=== PATIENT | male | born 1985 | race Caucasian/White ===

== ENCOUNTER 2024-07-29 21:06 | Emergency (ER) | payer MEDICARE, SELFPAY ==
[2024-07-29 21:20] VITALS: BP 141/85; PULSE 95; RESP 17; TEMP 37.2; O2SAT 97; BMI 37.4
--- NOTE | 2024-07-29 21:55 | ED_ITS ---
HPI - Animal Bite General: Chief Complaint: Animal Bite Stated Complaint: Dog Bite Time Seen by Provider: 07/29/24 21:36 History of Present Illness: 39-year-old male bitten by dog to the [facility] arm prior to arrival. The dog belongs to a lady that is staying with him. By report, the dog's vaccinations are up-to-date. The dog is quarantined currently by the police department. His tetanus is not up-to-date. He has multiple antibiotic allergies. He cleaned the wound with peroxide prior to arrival. Related Data Previous Rx's ?Medication ?Instructions ?Recorded doxycycline hyclate 100 mg tablet 100 mg PO BID 5 days #10 tabs 07/29/24 metronidazole 500 mg tablet 500 mg PO BID #10 tabs Allergies Allergy/AdvReac Type Severity Reaction Status Date / Time amoxicillin Allergy ALGY-Rash Verified 07/29/24 21:23 azithromycin Allergy ALGY-Rash Verified 07/29/24 21:23 Penicillins Allergy ALGY-Rash Verified 07/29/24 21:23 Sulfa (Sulfonamide Allergy ALGY-Rash Verified 07/29/24 21:23 Antibiotics) Physical Exam Const: COMMON NORMALS: no acute distress GENERAL APPEARANCE: cooperative; not ill appearing and not frail appearing HENMT: COMMON NORMALS: normocephalic, atraumatic and Normal external nose present HEAD & SCALP: normocephalic and atraumatic FACE & SINUS: normal facial exam and face symmetric NOSE: Normal external nose present Eye: COMMON NORMALS: Equal, round and reactive pupils present and EOMs intact bilaterally PUPIL: Yes Equal, round and reactive pupils present Neck/C-Spine: GENERAL: Yes trachea midline Chest: CHEST: Yes Symmetrical chest wall rise Resp: COMMON NORMALS: normal respiratory effort, No retractions, No use of accessory muscles and clear to auscultation bilaterally AUSCULTATION: clear to auscultation bilaterally Cardio: COMMON NORMALS: regular rate and regular rhythm RATE: regular rate RHYTHM: regular rhythm Extremity: NARRATIVE EXTREMITY EXAM: Right upper extremity exam reveals a single puncture wound to the right anterior arm. No bleeding or drainage. No surrounding erythema. Neuro: SHAWNA COMA SCALE: document GCS findings Carnegie coma scale eye opening: Spontaneous Shawna coma scale verbal response: Orientated Carnegie coma scale motor response: Obey commands Carnegie coma scale total score: 15 SENSORY EXAM: Yes extremities (intact) Psych: COMMON NORMALS: speech normal SPEECH: Yes normal speech Course Vital Signs: Vital signs: Vital Signs Temperature 99.0 F 07/29/24 21:20 Pulse Rate 96 07/29/24 22:10 Respiratory Rate 17 07/29/24 21:20 Blood Pressure 140/91 07/29/24 22:10 Pulse Oximetry 98 07/29/24 22:10 Oxygen Delivery Me thod Room Air 07/29/24 21:20 MDM - Animal Bite Medical Decision Making Antibiotic coverage. Tetanus. Dog is quarantined. Return for problems. All radiology interpretation(s) finalized by discharge Discharge Plan Discharge Patient Disposition: Home Clinical Impression: Dog bite Condition: Stable Prescriptions: New doxycycline hyclate 100 mg tablet 100 mg PO BID 5 Days Qty: 10 0RF metronidazole 500 mg tablet 500 mg PO BID Qty: 10 0RF Discharge Orders: Discharge ED (Routine); Ordered 07/29/24 Ordered By: Madi Del Rio Patient Instructions: Animal Bite (ED), Opioid Safety, Pain Management Activity Restrictions/Additional Instructions: Antibiotics as directed. Wash wound with soap and running water. Do not submerge. Return for problems. Make sure you stay informed of dogs clinical status, and return if any changes in the dog's condition for reevaluation. Print Language: Upper Sorbian Coding Level of Care Code ED Audit Spec for Ramiro Islas
[2024-07-29] MEDS: doxycycline 100 mg Tablet PO (22:03)
[2024-07-29] MEDS: metroNIDAZOLE 500 MG Tablet PO (22:03)
[2024-07-29] MEDS: tetanus-dipt-pertussis 0.5 mL SDV IM (22:04)
[2024-07-29 22:10] VITALS: BP 140/91; PULSE 96; O2SAT 98
== END 2024-07-29 22:12 | disposition home or self-care (01) ==
PROVIDERS: Emergency Provider Emergency Medicine
DX: S41.151A Open bite of right upper arm, initial encounter (principal); W54.0XXA Bitten by dog, initial encounter
CPT/HCPCS: 90471; 90715; 99283; J9999

== ENCOUNTER 2024-09-22 06:13 | Emergency (ER) | payer MEDICARE, SELFPAY ==
--- OUTSIDE RECORDS SUMMARY | 2023-12-03 04:00 | XMS_ITS ---
Author Organization [facility] Address [address] [place] [address] Support Name Relationship Address , Yolanda Helms Emergency Contact Unknown Unavailable Cal Helms Guarantor Unknown [phone] Care Team Providers Care Geospatial Analyst Name Role Phone Luz Giles APRN Primary Care Provider Unavail able Ti Shell Unavailable [phone] Migration, Provider Unavailable Unavailable REASON FOR VISIT EMR-Joby Encounters Encounter Location Date Provider Diagnosis Migrated_Facility 0 0 12/03/2023 Provider Migration Plan Of Treatment Medication Medication Name Sig Start Date Stop Date Notes Meloxicam 15 MG Tablet 1 Tablet Twice a Day PRN Oral 06/2107/22/2019 Next Appt Details Provider Name:Ti Shell, 03/25/2025 10:20:00 AM, [address], [place], [address], Progress Notes * Cal HELMS DDOB: [birth year] (39 yo M)Acc No.[id number]:12/03/2023 Patient: Cal PAIGE :1985 A ge:38 Y S ex:Male Address:[address], [place] [address] * Refills Stop Meloxicam Tablet, 15 MG, Oral, 1 Tablet Twice a Day PRN Subjective: * Chief Complaints: * E MR-Joby * * Date:
--- OUTSIDE RECORDS SUMMARY | 2023-12-04 04:00 | XMS_ITS ---
Author Organization [facility] Address [address] [place] [address] Support Name Relationship Address , Yolanda Cee Emergency Contact Unknown Unavailable Cal Helms Guarantor Unknown [phone] Care Team Providers Care Mixing Machine Tender Name Role Phone Luz Giles APRN Primary Care Provider Unavail Ti Goyal Unavailable [phone] Migration, Provider Unavailable Unavailable Allergies Allergen (clinical drug ingredient) Drug/Non Drug Allergy documented on EMR Reaction Allergy Type Onset Date Status Substance with sulfonamide structure and antibacterial mechanism of action (substance) SULFA (SULFONAMIDE ANTIBIOTICS) (uncoded) Rash Allergy Active amoxicillin Amoxicillin Rash Drug Allergy Act dayan erythromycin Erythromycin anaphylaxis Drug Allergy Active erythromycin Erythromycin Base , Drug Allergy Active gabapentin Neurontin Unknown Drug Allergy Active Sulfatrim Unknown Drug Allergy Active Gabapentin Enacarbil Unknown Drug Allergy Active Amoxicillin ER , Drug Allergy Ac tive corticosteroid and/or corticosteroid derivative (FN) Corticosteroids Unknown Drug Allergy Active Substance with penicillin structure and antibacterial mechanism of action (substance) Penicillins Unknown Drug Allergy Active REASON FOR VISIT EMR-Joby Social History Social History Additional Details Category Social Info Options Details Migrated Social History Migrated Social History Alcoholic beverages? - No, Applying for disability? - Yes, Currently on disability? - No, Drug or substance abuse? - No, exposure to toxins/poisonous substances at work - No, Involved in any legal proceedings or lawsuits? - No, Marital Status - , Nonprescription drug use? - No, Participation in detoxification or rehabilitation - No, Smoking - No, Smoking status (MU) - Never smoker, Working currently? - No : last worked August 2018 Encounters Encounter Location Date Provider Diagnosis Migrated_Facility 0 0 12/04/2023 Provider Migration Plan Of Treatment Next Appt Details Provider Name:Ti Shell, 03/25/2025 10:20:00 AM, [address] [place] [address], [phone], Progress Notes * Angelo HELMSedgar DDOB: [birth year] (39 yo M)Acc No.[id number]:12/04/2023 Patient: Cal PAIGE :1985 A ge:38 Y S ex:Male Address:[address] [place] [address], [place] [address] Subjective: * Chief Complaints: * E MR-Joby * Medical History: Arthritis, M igraines, S welling of multiple joints, * Surgical History: Eye surgery Leg surgery * Family History: M igrated Family History: : Cancer, f ibromyalgia. * Social History: M igrated Social History: M igrated Social History: Alcoholic beverages? - No, A pplying for disability? - Yes, C urrently on disability? - No, D rug or substance abuse? - No, e xposure to toxins/poisonous substances at work - No, I nvolved in any legal proceedings or lawsuits? - No, M arital Status - , N onprescription drug use? - No, P articipation in detoxification or rehabilitation - No, S moking - No, S moking status (MU) - Never smoker, W orking currently? - No : last worked August 2018. * Allergies: A moxicillin: Rash - AllergySULFA (SULFONAMIDE ANTIBIOTICS): Rash - AllergyErythromycin Base: , - AllergyAmoxicillin ER: , - AllergyPenicillins: AllergyCorticosteroids: AllergyGabapentin Enacarbil: AllergyNeurontin: AllergySulfatrim: AllergyErythromycin: anaphylaxis - Allergy - Criticality High * * Date:
[2024-09-22 06:21] VITALS: BP 156/97; PULSE 75; RESP 20; TEMP 36.6; O2SAT 98; BMI 38.3
--- OUTSIDE RECORDS SUMMARY | 2024-09-22 06:21 | XMS_ITS | Clinical Summary ---
Author Organization [facility] Address [address] [place] [address] Care Team Providers Care Community Facilitator Name Role Phone Luz Giles APRN, SOLANGE Primary Care Provi sea Allergies Active Allergy Reactions Criticality Noted Date Comments Amoxicillin 06/24/2020 Azithromycin 06/24/2020 Penicillins 06/24/2020 Sulfa (Sulfonamide Antibiotics) 06/07 Medications No known medications Active Problems No known active problems Social History Tobacco Use Types Packs/Day Years Used Date Smoking Tobacco: Never Smokeless Tobacco: Never PHQ-2 Answer Date Recorded PHQ-2 Score 3 11/06/2020 Health Literacy Answer Date Recorded Health Literacy 1 11/12/2020 Sex and Gender Information Value Date Recorded Sex Assigned at Not on file Legal Sex Male 2: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 Gender Identity Not on file Sexual Orientation Not on file Last Filed Vital Signs Vital Sign Reading Time Taken Comments Blood Pressure 143/85 11/06/2020 1:03 PM CDT Pulse 71 11/06/2020 1:03 PM CDT Temperature 36.7 C (98.1 F) 11/06/2020 1:03 PM CDT Respiratory Rate - - Oxygen Saturation 100% 11/06/2020 1:03 PM CDT Inhaled Oxygen Concentration - - Weight 153.8 kg (339 lb 1.6 oz) 11/06/2020 1:03 PM CDT Height 177.8 cm (5' 10 ) 11/06/2020 1:03 PM CDT Body Mass Index 48.66 11/06/2020 1:03 PM CDT Plan of Treatment Health Maintenance Due Date Last Done Comments Anxiety Screening 1994 Depression Screening 2004 Hepatitis B Vaccine (1 of 3 - 19+ 3-dose series) 2005 Pneumococcal Vaccine 0-50 ye ars (1 of 2 - PCV) 2005 TDAP/DTaP/TD Vaccines (1 - Tdap) 2005 COVID-19 Vaccine (1 - 2023-2 5 season) 2023 Influenza Series (#1) 2024 HIV Screening Completed 11/06/2020 Hepatitis C Screening Completed 11/06/2020 Meningococcal B Vaccine Aged Out No l onger eligible based on patient's age to complete this topic Procedures Procedure Name Priority Date/Time Associated Diagnosis Comments CHRONIC HEPATITIS SCREEN Routine 11/06/2020 3:17 PM CDT Central pain syndrome HIV-1/2 ANTIBODIES AND HIV-1 P24 ANTIGEN SCREENING Routine 11/06/2020 3:17 PM CDT Central pain syndrome from Last 3 Months or Most Recently Relevant to Health Maintenance Results * HIV1/2 Antibodies and HIV-1 P24 Antigen Screening (11/06/2020 3:17 PM CDT) HIV I&II antibodies and HIV I P24 antigen Screening Non-Reacti ve Non-React dayan 11/06/2020 4:18 PM CDT [facility] Serum 11/06/2020 3:17 PM CDT 11/06/2020 3:28 PM CDT Narrative [facility] - 11/06/2020 4:18 PM CDT This assay does not distinguish HIV-1 p24 antigen, antibodies to HIV-1 (group M and group O), and antibodies to HIV-2. This result was obtained using the [employer] Social [employer] Community Manager immunoassay method, FDA- approved for clinical diagnostic use. This assay should not be used for the screening of sera for the evaluation of potential cell, tissue and blood donors. us John Mckeon MD LAB BLOOD ORDERABLES Final Resu lt [facility] [address] [place] [address], * Hepatitis Screen (11/06/2020 3:17 PM CDT) Hepatitis B Surface Ag Negative Negative 11/06/2020 4:19 PM CDT [facility] Hep B Surface Ab Non-reactive 11/06/2020 4:19 PM CDT [facility] Hepatitis C Virus Ab Non-reactive Non-reactive 11/06/2020 4:19 PM CDT [facility] Hep A IgM Non-reactive Non-reactive 11/06/2020 4:19 PM CDT [facility] Hep B Core Total Negative Negative 11/06/2020 4:19 PM CDT [facility] Serum 11/06/2020 3:17 PM CDT 11/06/2020 3:28 PM CDT Narrative [facility] - 11/06/2020 4:19 PM CDT These results were obtained using the [employer] Social [employer] Community Manager immunoassay method,FDA approved for clinical diagnostic use. These assays should not be used for the screening of sera for the evaluation of potential cell, tissue, and blood donors. John Mckeon MD LAB BLOOD ORDERABLES Final Resu lt [facility] [address] [place] [address], from Last 3 Months or Most Recently Relevant to Health Maintenance Insurance [address] [address] [employer]ALLIC Care Teams Community Facilitator Relationship Specialty Start Date End Date Luz Giles APRN, ERP PM [address] [place] [address] [address] [place] [address] PCP - General Nurse Practitioner Family 11/06/20
--- OUTSIDE RECORDS SUMMARY | 2024-09-22 06:21 | XMS_ITS | Encounter Summary ---
Author Organization [facility] Address [address] [facility] [place] [address] Care Team Providers Care Paperhanger And Painter Name Role Phone Luz Giles APRN, CNP Primary Care Provi sea Encounter Details Date Type Department Care Team ([facility] st Contact Info) Description 11/20/2020 Outside Records [facility] [address] [place] [address] Interface, Provider Social History Tobacco Use Types Packs/Day Years Used Date Smoking Tobacco: Never Smokeless Tobacco: Never PHQ-2 Answer Date Recorded PHQ-2 Score 3 11/06/2020 Health Literacy Answer Date Recorded Health Literacy 1 11/12/2020 Sex and Gender Information Value Date Recorded Sex Assigned at Not on file 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 No / Unsure 11/05/2020 12:05 PM CDT documented as of this encounter Plan of Treatment Not on file documented as of this encounter Visit Diagnoses Not on filedocumented in this encounter Additional Health Concerns Assessment Noted Time PHQ-9 Depression Total Score: 12 021 1:01 PM CDT documented as of this encounter Care Teams Paperhanger And Painter Relationship Specialty Start Date End Date Luz Giles APRN, CNP [address] [place] [address] [address] [place] [address] PCP - General Nurse Practitioner Family 11/06/20 documented as of this encounter
--- OUTSIDE RECORDS SUMMARY | 2024-09-22 06:21 | XMS_ITS | Encounter Summary ---
Author Organization [facility] Address [address] [place] [address] Care Team Providers Care Site Project Manager Name Role Phone Luz Giles APRN, CNP Primary Care Provi sea Encounter Details Date Type Department Care Team ([facility] st Contact Info) Description 03/20/2020 Outside Records [facility] [address] [place] [address] Interface, Provider Social History Tobacco Use Types Packs/Day Years Used Date Smoking Tobacco: Never Assessed Sex and Gender Information Value Date Recorded Sex Assigned at Not on file Legal Sex Male 2:17 PM PATTERNMAKER HAND Gender Identity Not on file Sexual Orientation Not on file COVID-19 Exposure Response Date Recorded In the last month, have you been in contact with someone who was confirmed or suspected to have Coronavirus / COVID-19? No / Unsure 03/20/2020 3:12 PM PATTERNMAKER HAND documented as of this encounter Plan of Treatment Not on file documented as of this encounter Visit Diagnoses Not on filedocumented in this encounter Care Teams Site Project Manager Relationship Specialty Start Date End Date Luz Giles APRN, CNP [address] [place] [address] [address] [place] [address] PCP - General Nurse Practitioner Family 11/06/20 documented as of this encounter
--- OUTSIDE RECORDS SUMMARY | 2024-09-22 06:21 | XMS_ITS | Encounter Summary ---
Author Organization [facility] Address [address] [facility] [place] [address] Care Team Providers Care Boat Loader Name Role Phone Luz Giles APRN, CNP Primary Care Provi sea Encounter Details Date Type Department Care Team ([facility] st Contact Info) Description 03/19/2020 Outside Records [facility] [address] [place] [address] Interface, Provider Social History Tobacco Use Types Packs/Day Years Used Date Smoking Tobacco: Never Assessed Sex and Gender Information Value Date Recorded Sex Assigned at Not on file Legal Sex Male 2:17 PM WELDER Gender Identity Not on file Sexual Orientation Not on file COVID-19 Exposure Response Date Recorded In the last month, have you been in contact with someone who was confirmed or suspected to have Coronavirus / COVID-19? No / Unsure 03/20/2020 3:12 PM WELDER documented as of this encounter Plan of Treatment Not on file documented as of this encounter Visit Diagnoses Not on filedocumented in this encounter Care Teams Boat Loader Relationship Specialty Start Date End Date Luz Giles APRN, CNP [address] [place] [address] [address] [place] [address] PCP - General Nurse Practitioner Family 11/06/20 documented as of this encounter
--- OUTSIDE RECORDS SUMMARY | 2024-09-22 06:22 | XMS_ITS | Clinical Summary ---
Author Organization [facility] Address [address] [place] [address] Phone Care Team Providers Care Vehicle Cost Engineer Name Role Phone Dylon Noble NP Primary Care Provider [phone] Social History Tobacco Use Types Packs/Day Years Used Date Smoking Tobacco: Never Assessed Sex and Gender Information Value Date Recorded Sex Assigned at Not on file Legal Sex Male 10:21 AM CDT Gender Identity Not on file Sexual Orientation Not on file Plan of Treatment Health Maintenance Due Date Last Done Comments Annual Depression Screening 1997 Annual Physical 2004 Hepatitis C Antibody Screen 2004 DTap/Tdap/Td Vaccines (1 - Tdap) 2005 Flu Vaccine (#1) 10/08/2024 Insurance [facility] Care Teams Vehicle Cost Engineer Relationship Specialty Start Date End Date Dylon Noble NP [address] [facility] [place] [phone] PCP - General Nurse Practitioner 09/15/18
--- OUTSIDE RECORDS SUMMARY | 2024-09-22 06:22 | XMS_ITS | Clinical Summary ---
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
--- OUTSIDE RECORDS SUMMARY | 2024-09-22 06:22 | XMS_ITS | Encounter Summary ---
Author Organization [facility] Address [address] [place] [address] Care Team Providers Care Overhead Line Worker Name Role Phone Unavailable Primary Care Provider Unavailabl e Encounter Details Date Type Department Care Team (Latest Contact Info) Description 02/08/1997 Outpatient Historical [facility] Rheumatology- [facility] [address] [phone] Tricia Young MD [address] [place], [place] [id number] Polyarticular juvenile rheumatoid arthritis, chronic or unspecified (CMS/HCC) (Primary Dx) Social History Tobacco Use Types Packs/Day Years Used Date Smoking Tobacco: Never Assessed Sex and Gender Information Value Date Recorded Sex Assigned at Not on file Legal Sex Male 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
--- OUTSIDE RECORDS SUMMARY | 2024-09-22 06:22 | XMS_ITS | Patient Health Record ---
Author Organization [employer] y, [facility] Address [address] [place] [address] Care Team Providers Care Efficiency Clerk Name Role Phone Luz Giles Primary Care Provider KASHIF Navas Unavailable [phone] Allergies Allergen (clinical drug ingredient) Drug/Non Drug Allergy documented on EMR Reaction Allergy Type Onset Date Status erythromycin Erythromycin anaphylaxis Drug Allergy Active erythromycin Erythromycin Base , Drug Allergy Active Levaquin hives Drug Allergy Active gabapentin Neurontin Unknown Drug Allergy Active Sulfatrim Unknown Drug Allergy Active Gabapentin Enacarbil Unknown Drug Allergy Active Amoxicillin ER , Drug Allergy Ac tive corticosteroid and/or corticosteroid derivative (FN) Corticosteroids Unknown Drug Allergy Active Substance with penicillin structure and antibacterial mechanism of action (substance) Penicillins Unknown Drug Allergy Active Reason For Referral No Information Medications Medication SIG (Take, Route, Frequency, Duration) Notes Start Date End Date Status Cannabinoids Inhaled *Reorder from [facility] for eRx and Interaction Alerts* Active Wellbutrin 100 MG 1 tablet in the morning for 1 week then bid Orally as directed; Duration: 30 day(s) *Reorder from [facility] for eRx and Interaction Alerts* 09/08/2020 Not-Taking Topamax 25 MG 1 tablet at bedtime for 1 week then bid Orally Once a day; Duration: 30 day(s) WITH FULL GLASS OF WATER 09/08/2020 Not-Taking KlonoPIN 1 MG 1 tablet Orally Once a day prn; Duration: 30 days 09/08/2020 Not-Taking SEROquel 25 MG 1-2 tablet at bedtime Orally Once a day; Duration: 30 days 09/08/2020 Not-Taking Problems Problem Type SNOMED Code ICD Code Onset Dates Problem Status W/U Status Risk Notes Problem Chronic pain (64095698) Other chronic pain (G89.29) Active confirmed Problem Chronic pain syndrome (520420478) Chronic pain syndrome (G89.4) Active confirmed Problem Erectile dysfunction (disorder) (970571110) Other male erectile dysfunction (N52.8) Active confirmed Problem Nocturia (182851114) Nocturia (R35.1) Active confirmed Problem Irritability and anger (753573689) Irritability and anger (R45.4) Active confirmed Problem Lower urinary tract symptoms due to benign prostatic hypertrophy (08125052797900) Benign prostatic hyperplasia with lower urinary tract symptoms (N40.1) Active confirmed Problem Posttraumatic stress disorder (09952452) PTSD (post-traumatic stress disorder) (F43.10) Active confirmed Problem Skin sensation disturbance (30222631) Complaint of paresthesia (R20.2) Active confirmed Problem Depressive disorder (disorder) (24136309) Depression, unspecified depression type (F32.9) Active confirmed Problem Perianal pain (961270600) Perianal pain (K62.89) Active confirmed Problem Erectile dysfunction (disorder) (340162174) Erectile dysfunction, unspecified erectile dysfunction type (N52.9) Active confirmed Problem History of prostatitis (989829872432291) History of prostatitis (Z87.438) Active confirmed Problem Moderate recurrent major depression (65829905) Moderate episode of recurrent major depressive disorder (F33.1) Active confirmed Problem Medication management (798723864) Medication management (Z79.899) Active confirmed Problem Contraception care education (648081056) Vasectomy evaluation (Z30.09) Active confirmed Problem Insomnia (137598727) Insomnia, unspecified type (G47.00) Active confirmed Problem Marital/partner relational problem (Z63.0) Active confirmed Problem Recurrent major depression in full remission (57801042) Recurrent major depressive disorder, in full remission (F33.42) Active confirmed Problem Panic attack (846869089) Panic attack (F41.0) Active confirmed Problem Obsessive-compuls dayan disorder (700826117) Obsessive-compul sive disorder, unspecified type (F42.9) Active confirmed Plan Of Treatment No Information Insurance Providers Payer Name Payer Address Payer Phone Subscriber Number Group Number Insured Name Patient Relationship to Insured Coverage Start Date Coverage End Date [place] [address] CHARLY SAHU [id number] [place] Mike Self - patient is the insured Medical (General) History Medical History History ICD Code Headache Problem:Hypothyroidism (disorder) , Stat us :: Active Morbid obesity Muscle pain Obesity Obstructive sleep apnea syndrome Paresthesia of hand Productive cough Rheumatoid arthritis Problem:Tularemia (disorder) , Status :: Active Problem:Urgent desire for stool (finding ) , Status :: Active Problem:Vitamin D deficiency (disorder) , Status :: Active Problem:Arthritis (disorder) , Status :: Active Problem:Irritable colon (disorder) , Sta tus :: Active anal burning with erection Chronic pain disorder G89.4 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
--- OUTSIDE RECORDS SUMMARY | 2024-09-22 06:22 | XMS_ITS | Encounter Summary ---
Author Organization [facility] Address [address] [facility] 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 No / Unsure 06/23/2020 5:24 PM CDT documented as of this encounter Plan of Treatment Not on file documented as of this encounter Visit Diagnoses Not on filedocumented in this encounter Care Teams Extern Relationship Specialty Start Date End Date Luz Giles APRN, CNP [address] [place] [address] [address] [place] [address] PCP - General Nurse Practitioner Family 11/06/20 documented as of this encounter
--- OUTSIDE RECORDS SUMMARY | 2024-09-22 06:22 | XMS_ITS | Encounter Summary ---
Author Organization [facility] Address [address] [facility] 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
--- OUTSIDE RECORDS SUMMARY | 2024-09-22 06:22 | XMS_ITS | Encounter Summary ---
Author Organization [facility] Address [address] [place] [address] Care Team Providers Care Airdrop Systems Technician Name Role Phone Unavailable Primary Care Provider Unavailabl e Encounter Details Date Type Department Care Team (Latest Contact Info) Description 08/12/1997 Outpatient Historical [facility]ology- [facility] [address] [phone] Tricia Young MD [address] [place], [place] [phone] Polyarticular juvenile rheumatoid arthritis, chronic or unspecified (CMS/HCC) (Primary Dx) Social History Tobacco Use Types Packs/Day Years Used Date Smoking Tobacco: Never Assessed Sex and Gender Information Value Date Recorded Sex Assigned at Not on file 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
--- OUTSIDE RECORDS SUMMARY | 2024-09-22 06:22 | XMS_ITS | Encounter Summary ---
Author Organization [facility] Address [address] [facility] 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
--- OUTSIDE RECORDS SUMMARY | 2024-09-22 06:22 | XMS_ITS | Encounter Summary ---
Author Organization [facility] Address [address] 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 No / Unsure 05/28/2020 12:45 PM CDT documented as of this encounter Plan of Treatment Not on file documented as of this encounter Visit Diagnoses Not on filedocumented in this encounter Care Teams Channel Marketing Specialist Relationship Specialty Start Date End Date Luz Giles APRN, CNP [address] [place] [place] [address] [address] [place] [address] PCP - General Nurse Practitioner Family 11/06/20 documented as of this encounter
--- NOTE | 2024-09-22 06:30 | XRR_ITS ---
PROCEDURE INFORMATION: Exam: XR Chest Exam date and time: 09/22/2024 6:38 AM Age: 39 years old Clinical indication: Cough and dyspnea; Additional info: Dyspnea/cough TECHNIQUE: Imaging protocol: Radiologic exam of the chest. Views: 1 view. COMPARISON: No relevant prior studies available. FINDINGS: Lungs: Unremarkable. No consolidation. Pleural spaces: Unremarkable. No pleural effusion. No pneumothorax. Heart/Mediastinum: Unremarkable. No cardiomegaly. Bones/joints: Unremarkable. XR/XR chest 1V portable [id number] IMPRESSION: No acute cardiopulmonary process.
--- NOTE | 2024-09-22 06:35 | ED_ITS ---
HPI - URI/Sore Throat 2 General: Chief Complaint: Upper Respiratory Infection Stated Complaint: Coughing up Blood pressure in ear Time Seen by Provider: 09/22/24 06:29 History of Present Illness: 39-year-old male presents emergency room complaining of right ear discomfort as well as some sinus drainage is been going on for months he has been on antibiotics for without improvement he has had a little bit productive cough at times with streaks of blood. No real shortness of breath no vomiting or diarrhea Associated symptoms: Reports ear or mastoid pain; Deny abdominal pain, chills, chest pain or fever(s) Related Data Previous Rx's ?Medication ?Instructions ?Recorded cefdinir 300 mg capsule 300 mg PO BID 7 days #14 cap s 09/16/24 prednisone 20 mg tablet 40 mg (2 x 20 mg) PO DAILY 5 days 09/20/24 #10 tabs levofloxacin 750 mg tablet 750 mg PO DAILY 10 days #10 tabs 09/22/24 Allergies Allergy/AdvReac Type Severity Reaction Status Date / Time amoxicillin Allergy ALGY-Rash Verified 09/20/24 07:20 azithromycin Allergy ALGY-Rash Verified 09/20/24 07:20 Penicillins Allergy ALGY-Rash Verified 09/20/24 07:20 Sulfa (Sulfonamide Allergy ALGY-Rash Verified 09/20/24 07:20 Antibiotics) Review of Systems 2 Narrative: 39-year-old male presents emergency room with complaint of right ear pain and fullness sinus drainage moderately productive cough with streaks of blood. He has had this for about 2 weeks. Const: Denies: fever(s) or chills ENMT: Reports: ear or mastoid pain Card: Denies: chest pain Resp: Denies: dyspnea GI: Denies: abdominal pain : Denies: dysuria, urinary frequency or urinary urgency Musc: Denies: neck pain or back pain Skin/Breast: Denies: rash PFSH ED 2 PFSH: Social History Smoking and tobacco/nicotine status: current every day tobacco/nicotine user Physical Exam 2 Const: COMMON NORMALS: no acute distress GENERAL APPEARANCE: cooperative and comfortable ORIENTATION/CONSCIOUSNESS: Yes awake, Yes oriented to person, Yes oriented to place and Yes oriented to time HENMT: COMMON NORMALS: normocephalic, atraumatic and hearing grossly normal bilaterally HEAD & SCALP: normocephalic and atraumatic OTHER: Right TM red and inflamed landmarks obscured no perforation Resp: COMMON NORMALS: normal respiratory effort, No retractions, No use of accessory muscles and clear to auscultation bilaterally AUSCULTATION: clear to auscultation bilaterally Cardio: COMMON NORMALS: regular rate, regular rhythm and No murmurs present (Cardio) RATE: regular rate RHYTHM: regular rhythm GI: COMMON NORMALS: Soft to palpation and No hepatosplenomegaly present A USCULTATION: Yes normoactive bowel sounds PALPATION: Yes Soft to palpation, No Tenderness to palpation present (GI), No Guarding due to palpation present (GI) and Yes No hepatosplenomegaly present Extremity: COMMON NORMALS: normal to inspection, capillary refill normal, no clubbing, cyanosis or edema, no calf tenderness and no pedal edema Neuro: SENSORIUM/ORIENTATION: Yes oriented to person, Yes oriented to place and Yes oriented to time Skin: COMMON NORMALS: no rashes or lesions noted GENERAL SKIN EXAM: no rashes or lesions noted Course 2 Vital Signs: Vital signs: Vital Signs Temperature 98 F 09/22/24 06:21 Pulse Rate 87 09/22/24 08:11 Respiratory Rate 20 H 09/22/24 06:21 Blood Pressure 138/89 09/22/24 08:11 Pulse Oximetry 96 09/22/24 08:11 MDM - URI/Sore Throat Medical Decision Making Patient has significant allergy list. Reviewed literature expressed recommendation at this point to cover both for otitis media after failure of other medications to be Levaquin 750 p.o. daily which should also help with sinusitis he does have some sinusitis as well. Will start him on that and have him follow-up with his primary care doctor return to press for prompt Medical Records I reviewed the patient's medical records. Lab Data I reviewed the patient's lab results. 09/22/24 06:39 09/22/24 06:39 Radiology Impressions Chest X-Ray 09/22/24 06:30 IMPRESSION: No acute cardiopulmonary process. Laboratory Results WBC 10.06 10^3/uL (3.29-11.43) 09/22/24 06:39 RBC 4.70 10^6/uL (3.85-5.65) 09/22/24 06:39 Hgb 14.10 g/dL (11.27-16.99) 09/22/24 06:39 Hct 43.0 % (37-53) 09/22/24 06:39 MCV 91.5 fl (82-101) 09/22/24 06:39 MCH 30.0 pg (27-33) 09/22/24 06:39 MCHC 32.8 g/dL (30-55) 09/22/24 06:39 RDW 12.2 % (12.1-15.1) 09/22/24 06:39 Plt Count 316 10^3/cmm (157-399) 09/22/24 06:39 MPV 9.2 fL (7.4-10.4) 09/22/24 06:39 Neut % (Auto) 74.1 % 09/22/24 06:39 Lymph % (Auto) 16.3 % 09/22/24 06:39 [place] % (Auto) 8.1 % 09/22/24 06:39 Eos % (Auto) 0.8 % 09/22/24 06:39 Baso % (Auto) 0.4 % 09/22/24 06:39 Neut # (Auto) 7.46 10^3/uL (1.8-7.7) 09/22/24 06:39 Lymph # (Auto) 1.6 10^3/uL (0.8-4.8) 09/22/24 06:39 [place] # (Auto) 0.8 10^3/uL (0.2-0.9) 09/22/24 06:39 Eos # (Auto) 0.1 10^3/uL (0.0-0.8) 09/22/24 06:39 Baso # (Auto) 0.0 10^3/uL (0.0-0.1) 09/22/24 06:39 Nucleated RBC % (auto) 0 % 09/22/24 06:39 Nucleated RBCs # 0.0 /100WBC 09/22/24 06:39 D-Dimer 0.28 ug/mLFEU (0-0.59) 09/22/24 06:39 Sodium 141 mmol/L (136-145) 09/22/24 06:39 Potassium 4.3 mmol/L (3.5-5.1) 09/22/24 06:39 Chloride 103 mmol/L (98-107) 09/22/24 06:39 Carbon Dioxide 28 mmol/L (22-29) 09/22/24 06:39 Anion Gap 14.3 (5-19) 09/22/24 06:39 BUN 15 mg/dL (6-20) 09/22/24 06:39 Creatinine 0.8 mg/dL (0.7-1.2) 09/22/24 06:39 GFR Calculation 108.2 mL/min (90-130) 09/22/24 06:39 Glucose 114 mg/dL (65-115) 09/22/24 06:39 Calculated Osmolality 294 mOsm/kg (285-295) 09/22/24 06:39 Calcium 8.8 mg/dL (8.5-10.5) 09/22/24 06:39 Total Bilirubin 0.3 mg/dL (0.15-1.2) 09/22/24 06:39 AST 12 U/L (0-40) 09/22/24 06:39 ALT 15 U/L (0-41) 09/22/24 06:39 Alkaline Phosphatase 52 U/L (40-130) 09/22/24 06:39 Total Protein 6.6 g/dL (6.6-8.7) 09/22/24 06:39 Albumin 3.9 g/dL (3.5-5.2) 09/22/24 06:39 Globulin 2.7 g/dL (1.3-4.6) 09/22/24 06:39 Urine Color Yellow (Yellow) 09/22/24 06:50 Urine Appearance Clear (CLEAR) 09/22/24 06:50 Urine pH 7.0 (5-7) 09/22/24 06:50 Ur Specific [place] 1.013 (1.005-1.030) 09/22/24 06:50 Urine Protein Negative (Negative) 09/22/24 06:50 Urine Glucose (UA) Negative (Normal) 09/22/24 06:50 Urine Ketones Negative (Negative) 09/22/24 06:50 Urine Blood Negative (Negative) 09/22/24 06:50 Urine Nitrate Negative (Negative) 09/22/24 06:50 Urine Bilirubin Negative (Negative) 09/22/24 06:50 Urine Urobilinogen 0.2 mg/dL (Negative) 09/22/24 06:50 Ur Leukocyte Esterase Negative (Negative) 09/22/24 06:50 Amorphous Sediment Not Reportable 09/22/24 06:50 All radiology interpretation(s) finalized by discharge Discharge Plan Discharge Patient Disposition: Home Clinical Impression: Sinusitis, Otitis media Condition: Stable Prescriptions: New levofloxacin 750 mg tablet 750 mg PO DAILY 10 Days Qty: 10 0RF No Action cefdinir 300 mg capsule 300 mg PO BID 7 Days Qty: 14 0RF prednisone 20 mg tablet 40 mg PO DAILY 5 Days Qty: 10 0RF Discharge Orders: Discharge ED (Routine); Ordered 09/22/24 Ordered By: Jus Mak Patient Instructions: Otitis Media - Adult, Opioid Safety, Pain Management, Patient Portal & Ruddy Instructions, Sinusitis - Acute Activity Restrictions/Additional Instructions: Thank you for choosing [facility] for your healthcare needs today. It is very important that you follow up as instructed or that you return to the Emergency Department should you have concerns or if your condition changes or worsens in any way. You are seen in the emergency room with complaint of right ear pain. Your white count was normal chest x-ray was normal is no sign of pulmonary embolism your D- dimer was negative. Will change her medication to levofloxacin 750 mg daily. Print Language: Trinidadian Coding Level of Care Code ED Mini Lab Operator for Ramiro Islas
[2024-09-22 06:50] LABS: Hematocrit 43.0 % (37-53); Hemoglobin 14.10 g/dL (11.27-16.99); Mean Corpuscular HGB Conc 32.8 g/dL (30-55); Mean Corpuscular Hemoglobin 30.0 pg (27-33); Mean Corpuscular Volume 91.5 fl (82-101); Nucleated Red Blood Cells % 0 %; Platelet Count 316 10^3/cmm (157-399); Red Blood Count 4.70 10^6/uL (3.85-5.65); White Blood Count 10.06 10^3/uL (3.29-11.43)
[2024-09-22 06:56] LABS: Add Urine Microscopic? NO
[2024-09-22 07:07] LABS: Alanine Aminotransferase 15 U/L (0-41); Albumin Level 3.9 g/dL (3.5-5.2); Alkaline Phosphatase 52 U/L (40-130); Anion Gap 14.3 (5-19); Aspartate Amino Transferase 12 U/L (0-40); Blood Urea Nitrogen 15 mg/dL (6-20); Calcium 8.8 mg/dL (8.5-10.5); Carbon Dioxide 28 mmol/L (22-29); Chloride 103 mmol/L (98-107); Creatinine Clr Calc Pharmacy 168.3623; Globulin 2.7 g/dL (1.3-4.6); Glucose 114 mg/dL (65-115); Osmolality Calculated 294 mOsm/kg (285-295); Potassium 4.3 mmol/L (3.5-5.1); Sodium 141 mmol/L (136-145); Total Protein 6.6 g/dL (6.6-8.7)
[2024-09-22 07:22] LABS: Glucose Urine UA Negative (Normal); Nitrate Urine Negative (Negative); Specific Gravity, Urine 1.013 (1.005-1.030)
[2024-09-22 07:27] LABS: Charge for UA Resulting for Rev
[2024-09-22 08:11] VITALS: BP 138/89; PULSE 87; O2SAT 96
== END 2024-09-22 08:12 | disposition home or self-care (01) ==
PROVIDERS: Emergency Provider Family Medicine
DX: J32.9 Chronic sinusitis, unspecified (principal); H66.91 Otitis media, unspecified, right ear; Z72.0 Tobacco use
CPT/HCPCS: 71045; 80053; 81003; 85025; 85378; 99284

== ENCOUNTER 2024-10-30 17:05 | Emergency (ER) | payer MEDICARE, SELFPAY ==
--- NOTE | 2024-10-30 17:13 | USR_ITS ---
PROCEDURE INFORMATION: Exam: US Duplex Right Lower Extremity Veins, Limited Exam date and time: 10/30/2024 5:37 PM Age: 39 years old Clinical indication: Pain; Leg, upper and leg, lower; Right; Prior surgery; Surgery date: 6+ months; Surgery type: Tibia nail; Additional info: Swelling/pain TECHNIQUE: Imaging protocol: Real-time duplex ultrasound of the right extremity with 2-D lau scale, color Doppler flow and spectral waveform analysis including responses to compression and other maneuvers (when performed) with image documentation. Limited exam was focused on the right lower extremity veins. COMPARISON: No relevant prior studies available. FINDINGS: Right deep veins: Unremarkable. The common femoral, femoral, proximal profunda femoral and popliteal veins are patent without thrombus. Normal Doppler waveforms. Normal compressibility and/or augmentation response. Superficial veins: Partially occlusive thrombus noted from the mid thigh to below the knee greater saphenous vein. Soft tissues: Unremarkable. US/[place] [id number] IMPRESSION: No evidence of deep vein thrombosis. Superficial thrombus within the greater saphenous vein from the thigh to [id number].
--- OUTSIDE RECORDS SUMMARY | 2024-10-30 17:16 | XMS_ITS | Encounter Summary ---
Author Organization [facility] Address [address] [place] [address] Care Team Providers Care Yellow Pages Space Salesperson Name Role Phone Unavailable Primary Care Provider Unavailabl e Encounter Details Date Type Department Care Team (Latest Contact Info) Description 08/12/1997 Outpatient Historical [facility]- [facility] [address] [phone] Tricia Young MD [address] [place], [place] [phone] Polyarticular juvenile rheumatoid arthritis, chronic or unspecified (CMS/HCC) (Primary Dx) Social History Tobacco Use Types Packs/Day Years Used Date Smoking Tobacco: Never Assessed Sex and Gender Information Value Date Recorded Sex Assigned at Not on file 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
--- OUTSIDE RECORDS SUMMARY | 2024-10-30 17:16 | XMS_ITS | Clinical Summary ---
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
--- OUTSIDE RECORDS SUMMARY | 2024-10-30 17:16 | XMS_ITS | Encounter Summary ---
Author Organization [facility] Address [address] [place] [address] Care Team Providers Care Counter Hop Name Role Phone Unavailable Primary Care Provider Unavailabl e Encounter Details Date Type Department Care Team (Latest Contact Info) Description 02/08/1997 Outpatient Historical [facility] Rheumatology- [facility] [place] [address] [address] Tricia Young MD [address] [place], [place] [id number] Polyarticular juvenile rheumatoid arthritis, chronic or unspecified (CMS/HCC) (Primary Dx) Social History Tobacco Use Types Packs/Day Years Used Date Smoking Tobacco: Never Assessed Sex and Gender Information Value Date Recorded Sex Assigned at Not on file 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
--- OUTSIDE RECORDS SUMMARY | 2024-10-30 17:16 | XMS_ITS | Clinical Summary ---
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 Care Teams Fire Engine Pump Operator Relationship Specialty [place] [address] [place] [address] LUZ Rodrigues [id number] PCP - General Nurse Practitioner 09/15/18
[2024-10-30 17:19] VITALS: BP 115/76; PULSE 81; RESP 16; TEMP 36.9; O2SAT 99
--- NOTE | 2024-10-30 17:27 | ED_ITS ---
HPI - Extremity Problem General: Chief complaint: Extremity Problem,Nontraumatic Stated complaint: right side below and above knee blood clot Time Seen by Provider: 10/30/24 17:07 History of Present Illness: 39-year-old male with history of obesity who presents to the emergency room with right sided leg pain redness and swelling. He has an area on his left medial calf and an area on his left medial thigh that are indurated and red. He had some varicose veins there and appears to have some thrombophlebitis. No chest pain. No shortness of breath. He said this started after he was climbing a ladder the other day. Related Data Previous Rx's ?Medication ?Instructions ?Recorded diclofenac sodium 50 mg 50 mg PO Q12H PRN Pain #20 t abs 10/30/24 tablet,delayed release rivaroxaban 10 mg tablet 10 mg PO DAILY 45 days #45 t abs 10/30/24 Allergies Allergy/AdvReac Type Severity Reaction Status Date / Time amoxicillin Allergy ALGY-Rash Verified 10/30/24 17:22 azithromycin Allergy ALGY-Rash Verified 10/30/24 17:22 Penicillins Allergy ALGY-Rash Verified 10/30/24 17:22 Sulfa (Sulfonamide Allergy ALGY-Rash Verified 10/30/24 17:22 Antibiotics) Review of Systems Narrative: Constitutional symptoms: Negative except as documented in HPI. Skin symptoms: Negative except as documented in HPI. Eye symptoms: Negative except as documented in HPI. ENMT symptoms: Negative except as documented in HPI. Respiratory symptoms: Negative except as documented in HPI. Cardiovascular symptoms: Negative except as documented in HPI. Gastrointestinal symptoms: Negative except as documented in HPI. Genitourinary symptoms: Negative except as documented in HPI. Musculoskeletal symptoms: Negative except as documented in HPI. Neurologic symptoms: Negative except as documented in HPI. Psychiatric symptoms: Negative except as documented in HPI. Endocrine symptoms: Negative except as documented in HPI. PFSH ED PFSH: Social History Smoking and tobacco/nicotine status: never used tobacco/nicotine Physical Exam Narrative: EXAM NARRATIVE: General: Alert, no acute distress. Skin: Warm, dry. 10 cm area of induration with warmth around some varicose veins on the left medial calf and another slightly larger area on the left medial thigh Head: Normocephalic, atraumatic. Neck: Supple, trachea midline. Eye: Extraocular movements are intact. Ears, nose, mouth and throat: mucosa moist. Cardiovascular: Regular, Normal peripheral perfusion. Respiratory: Lungs are clear to auscultation, respirations are non-labored, breath sounds are equal, Symmetrical chest wall expansion. Gastrointestinal: Soft, Nontender, Non distended Musculoskeletal: Normal ROM, no deformity. Neurological: Alert and oriented, No focal neurological deficit observed. Psychiatric: Cooperative, appropriate mood & affect. Course Vital Signs: Vital signs: Vital Signs Temperature 98.5 F 10/30/24 17:19 Pulse Rate 86 10/30/24 17:31 Respiratory Rate 16 10/30/24 17:19 Blood Pressure 122/83 10/30/24 17:31 Pulse Oximetry 99 10/30/24 17:31 Oxygen Delivery Me thod Room Air 10/30/24 17:31 MDM - Extremity (Nontraumatic) Medical Decision Making Medical decision making: Differential diagnosis including but not limited to and based on the above HPI, review of systems and physical exam: Appears to have either cellulitis or thrombophlebitis or a combination of both. Orders placed to evaluate differential diagnosis based on the above differential, HPI and physical exam Ultrasound of the right lower extremity shows thrombophlebitis. This is in the greater saphenous vein above the knee which would indicate a 45-day treatment with Xarelto. This was reviewed and interpreted by myself the emergency room physician. I also reviewed the radiology report. Consultation with up-to-date recommends 45-day Xarelto daily for greater than 5 cm or above the knee greater saphenous thrombophlebitis. I discussed this with the patient I reviewed the patient's medical record. Reexamination: Patient remained stable. No increased work of breathing. No altered mental status. No focal motor deficits. Assessment and plan: Superficial thrombophlebitis ?First dose Xarelto here in the emergency room - Discharged home - Discussed plan with patient. Answered any questions. - Evaluation and treatment of this problem were appropriate in the emergency setting. Lab Data Radiology Impressions Venous Duplex 10/30/24 17:13 IMPRESSION: No evidence of deep vein thrombosis. Superficial thrombus within the greater saphenous vein from the thigh to [id number]. All radiology interpretation(s) finalized by discharge Discharge Plan Discharge Patient Disposition: Home Clinical Impression: Superficial thrombophlebitis Condition: Stable Prescriptions: New rivaroxaban 10 mg tablet 10 mg PO DAILY 45 Days Qty: 45 0RF diclofenac sodium 50 mg tablet,delayed release (DR/EC) 50 mg PO Q12H PRN (Reason: Pain) Qty: 20 0RF Discharge Orders: Discharge ED (Routine); Ordered 10/30/24 Ordered By: Juliann Valencia Patient Instructions: Superficial Thrombophlebitis (ED), Opioid Safety, Pain Management, Patient Portal & Ruddy Instructions Activity Restrictions/Additional Instructions: Please apply warm compresses to the affected area at least a couple times a day. If redness and swelling progresses despite anticoagulation please go see your primary provider or return to the emergency room. Also if you develop chest pain, shortness of breath or fast heart rate return to the emergency room Thank you for choosing [facility] for your healthcare needs today. You have been screened and evaluated and felt safe for discharge. Health conditions do change or evolve sometimes and as such it is important that you follow up with your Primary Doctor to be re checked, 3-5 days is a general good time frame for follow up. You are always welcome to return to the ED for re assessment if your symptoms are worsening or you have new concerns Print Language: Mohawk Coding Level of Care Code ED Drier And Pulverizer Tender for Ramiro Islas
[2024-10-30 17:31] VITALS: BP 122/83; PULSE 86; O2SAT 99
[2024-10-30 18:15] VITALS: BP 129/81; PULSE 94; O2SAT 98
== END 2024-10-30 18:16 | disposition home or self-care (01) ==
PROVIDERS: Emergency Provider Emergency Medicine
DX: I82.811 Embolism and thrombosis of superficial veins of right lower extremity (principal)
CPT/HCPCS: 93971; 99284; J9999

== ENCOUNTER 2024-11-05 18:10 | Emergency (ER) | payer MEDICARE, SELFPAY ==
[2024-11-05 18:19] VITALS: BP 128/76; PULSE 89; RESP 16; TEMP 37.1; O2SAT 98; BMI 39.9
--- NOTE | 2024-11-05 20:01 | USR_ITS ---
PROCEDURE INFORMATION: Exam: US Duplex Right Lower Extremity Veins, Limited Exam date and time: 11/05/2024 8:38 PM Age: 39 years old Clinical indication: Pain; Leg, lower; Right; Additional info: Diagonsed with superficial thrombophlebitis, red and hot TECHNIQUE: Imaging protocol: Real-time duplex ultrasound of the right extremity with 2-D lau scale, color Doppler flow and spectral waveform analysis including responses to compression and other maneuvers (when performed) with image documentation. Limited exam was focused on the right lower extremity veins. COMPARISON: [place] [id number] 10/30/2024 5:37 PM FINDINGS: Right deep veins: All imaged right lower extremity deep veins demonstrate normal flow, compressibility, and/or augmentation without evidence of deep venous thrombosis. Superficial veins: Nonocclusive superficial thrombus in the greater saphenous vein, both above and below the knee. Soft tissues: Unremarkable. US/[place] [id number] IMPRESSION: 1. No evidence of deep vein thrombosis. 2. Nonocclusive superficial thrombosis of the greater saphenous vein.
--- NOTE | 2024-11-05 20:13 | W.ED.EXTPRO ---
HPI - Extremity Problem General: Chief complaint: Extremity Problem,Nontraumatic Stated complaint: Possible Blood clots RT leg Time Seen by Provider: 11/05/24 19:03 Source: patient Mode of arrival: ambulatory Limitations: no limitations History of Present Illness: This patient is a 39-year-old male who presents emergency department with persistent right lower extremity pain. He was seen here in the emergency department on 10/30, was found to have pretty extensive superficial thrombophlebitis to the point where he was started on rivaroxaban. States he has been taking this as prescribed, but has had persistence of pain despite elevation, does not report wearing any compressive device. He does note that there is an area just proximal to the knee that is starting to become red and hot to the touch, denies any chest pain or shortness of breath. No fevers, chills, or other symptoms reported at this time. Vitals are stable, afebrile at this time. MD Complaint: extremity pain and extremity swelling Onset (ago): week(s) Pain Consistency: constant Location: right and lower extremity Associated symptoms: Deny chest pain, fever(s) or rash Context: other (Diagnosed with superficial thrombophlebitis, started on Xarelto) Related Data Previous Rx's ?Medication ?Instructions ?Recorded diclofenac sodium 50 mg 50 mg PO Q12H PRN Pain #20 tabs 10/30/24 tablet,delayed release rivaroxaban 10 mg tablet 10 mg PO DAILY 45 days #45 tabs 10/30/24 Allergies Allergy/AdvReac Type Severity Reaction Status Date / Time amoxicillin Allergy ALGY-Rash Verified 11/05/24 18:22 azithromycin Allergy ALGY-Rash Verified 11/05/24 18:22 Penicillins Allergy ALGY-Rash Verified 11/05/24 18:22 Sulfa (Sulfonamide Allergy ALGY-Rash Verified 11/05/24 18:22 Antibiotics) Review of Systems General: Reports: 10 or more systems reviewed and unremarkable except in HPI and below Const: Denies: fever(s) or chills Card: Denies: chest pain Resp: Denies: dyspnea or productive cough GI: Denies: abdominal pain, nausea, vomiting or diarrhea : Denies: flank pain Musc: Reports: extremity pain and extremity swelling; Denies: neck pain, back pain, joint pain, joint swelling, joint redness, joint warmth, limited range of motion or muscle weakness Skin/Breast: Reports: erythema and skin pain; Denies: rash Neuro: Denies: headache(s), numbness in extremities or weakness in extremities PFSH ED PFSH: Social History Smoking and tobacco/nicotine status: never used tobacco/nicotine Physical Exam Const: COMMON NORMALS: no acute distress, patient oriented x3, no limitations, healthy appearing, alert and well nourished HENMT: COMMON NORMALS: normocephalic and atraumatic HEAD & SCALP: normocephalic and atraumatic Neck/C-Spine: COMMON NORMALS: full ROM, supple and no meningeal signs Resp: COMMON NORMALS: normal respiratory effort, No use of accessory muscles and clear to auscultation bilaterally AUSCULTATION: clear to auscultation bilaterally Cardio: COMMON NORMALS: regular rate and regular rhythm RATE: regular rate RHYTHM: regular rhythm Extremity: COMMON NORMALS: full ROM and capillary refill normal NARRATIVE EXTREMITY EXAM: To medial aspect of right proximal knee, area of erythema and warmth with tortuous veins noted, consistent with superficial thrombophlebitis. Distal pulses are palpable, no cyanosis or pallor. No coolness to the extremity. Neuro: COMMON NORMALS: patient oriented x3, moves all extremities, no focal motor deficits and no sensory deficits noted SENSORIUM/ORIENTATION: Yes alert MENINGEAL SIGNS: Yes no meningeal signs Skin: COMMON NORMALS: no rashes or lesions noted GENERAL SKIN EXAM: no rashes or lesions noted Course Vital Signs: Vital signs: Vital Signs Temperature 98.7 F 11/05/24 18:19 Pulse Rate 89 11/05/24 18:19 Respiratory Rate 16 11/05/24 18:19 Blood Pressure 128/76 11/05/24 18:19 Pulse Oximetry 98 11/05/24 18:19 MDM - Extremity (Nontraumatic) Medical Decision Making Patient presenting for persistent right lower extremity pain after being diagnosed with superficial thrombophlebitis of the right greater saphenous vein that extended from thigh to below the right knee. States he has been elevating but has not been wearing any compressive devices. Has been taking Xarelto as prescribed as well as diclofenac and Tylenol for pain. On exam there was area of erythema and warmth to the right medial thigh just proximal to the knee, however he had no reports of systemic symptoms such as fever or chills and was not having any shortness of breath. Repeat ultrasound shows no evidence of DVT still, and CBC, CMP, ESR, and CRP support that this is not an infectious process. This is likely persistent pain due to the extensive nature of the superficial thrombophlebitis and he is encouraged to begin wearing compressive devices as well as continuing his prescription of Xarelto and elevation of extremity. He is also continue Motrin and Tylenol, overall stable for discharge home and will follow-up with primary care. Lab Data 11/05/24 20:30 11/05/24 20:30 Radiology Impressions Venous Duplex 11/05/24 20: IMPRESSION: 1. No evidence of deep vein thrombosis. 2. Nonocclusive superficial thrombosis of the greater saphenous vein. Laboratory Results WBC 6.23 10^3/uL (3.29-11.43) 11/05/24 20: RBC 4.57 10^6/uL (3.85-5.65) 11/05/24 20:30 Hgb 13.60 g/dL (11.27-16.99) 11/05/24 20: Hct 41.8 % (37-53) 11/05/24 20: MCV 91.5 fl (82-101) 11/05/24 20: MCH 29.8 pg (27-33) 11/05/24 20: MCHC 32.5 g/dL (30-55) 11/05/24 20: RDW 12.3 % (12.1-15.1) 11/05/24 20: Plt Count 304 10^3/cmm (157-399) 11/05/24 20: MPV 9.0 fL (7.4-10.4) 11/05/24 20: Neut % (Auto) 56.6 % 11/05/24 20: Lymph % (Auto) 30.3 % 11/05/24 20:30 [place] % (Auto) 9.1 % 11/05/24 20: Eos % (Auto) 3.2 % 11/05/24 20: Baso % (Auto) 0.5 % 11/05/24 20: Neut # (Auto) 3.52 10^3/uL (1.8-7.7) 11/05/24 20:30 Lymph # (Auto) 1.9 10^3/uL (0.8-4.8) 11/05/24 20:30 [place] # (Auto) 0.6 10^3/uL (0.2-0.9) 11/05/24 20:30 Eos # (Auto) 0.2 10^3/uL (0.0-0.8) 11/05/24 20: Baso # (Auto) 0.0 10^3/uL (0.0-0.1) 11/05/24 20:30 Nucleated RBC % (auto) 0 % 11/05/24 20: Nucleated RBCs # 0.0 /100WBC 11/05/24 20:30 ESR 7 mm/hr (0-10) 11/05/24 20:30 Sodium 141 mmol/L (136-145) 11/05/24 20: Potassium 4.6 mmol/L (3.5-5.1) 11/05/24 20: Chloride 103 mmol/L (98-107) 11/05/24 20:30 Carbon Dioxide 27 mmol/L (22-29) 11/05/24 20:30 Anion Gap 15.6 (5-19) 11/05/24 20: BUN 20 mg/dL (6-20) 11/05/24 20:30 Creatinine 0.8 mg/dL (0.7-1.2) 11/05/24 20:30 GFR Calculation 108.2 mL/min (90-130) 11/05/24 20: Glucose 111 mg/dL (65-115) 11/05/24 20:30 Calculated Osmolality 295 mOsm/kg (285-295) 11/05/24 20: Calcium 9.0 mg/dL (8.5-10.5) 11/05/24 20: Total Bilirubin 0.2 mg/dL (0.15-1.2) 11/05/24 20:30 AST 14 U/L (0-40) 11/05/24 20:30 ALT 14 U/L (0-41) 11/05/24 20: Alkaline Phosphatase 70 U/L (40-130) 11/05/24 20:30 C-Reactive Protein 14.6 mg/L (0.0-4.9) H 11/05/24 20:30 Total Protein 6.5 g/dL (6.6-8.7) L 11/05/24 20:30 Albumin 3.7 g/dL (3.5-5.2) 11/05/24 20:30 Globulin 2.8 g/dL (1.3-4.6) 11/05/24 20:30 All radiology interpretation(s) finalized by discharge Discharge Plan Discharge Patient Disposition: Home Clinical Impression: Thrombophlebitis of deep veins of right lower extremity Condition: Stable Prescriptions: No Action rivaroxaban 10 mg tablet 10 mg PO DAILY 45 Days Qty: 45 0RF diclofenac sodium 50 mg tablet,delayed release (DR/EC) 50 mg PO Q12H PRN (Reason: Pain) Qty: 20 0RF Discharge Orders: Discharge ED (Routine); Ordered 11/05/24 Ordered By: Naren Espinoza Patient Instructions: Patient Portal & Ruddy Instructions Activity Restrictions/Additional Instructions: Continue taking Xarelto and the diclofenac for pain, may alternate this with Tylenol. Wear compressive stocking/socks as we discussed, continue elevation. Return with any excessive shortness of breath, persistent redness or swelling, fevers or chills, or any other major concerns you have. Please follow-up with primary care this week. Print Language: Colombian Coding Level of Care Code ED Director Of Billing for Ramiro Islas
[2024-11-05 20:35] LABS: Hematocrit 41.8 % (37-53); Hemoglobin 13.60 g/dL (11.27-16.99); Mean Corpuscular HGB Conc 32.5 g/dL (30-55); Mean Corpuscular Hemoglobin 29.8 pg (27-33); Mean Corpuscular Volume 91.5 fl (82-101); Nucleated Red Blood Cells % 0 %; Platelet Count 304 10^3/cmm (157-399); Red Blood Count 4.57 10^6/uL (3.85-5.65); White Blood Count 6.23 10^3/uL (3.29-11.43)
[2024-11-05 20:55] LABS: Alanine Aminotransferase 14 U/L (0-41); Albumin Level 3.7 g/dL (3.5-5.2); Alkaline Phosphatase 70 U/L (40-130); Anion Gap 15.6 (5-19); Aspartate Amino Transferase 14 U/L (0-40); Blood Urea Nitrogen 20 mg/dL (6-20); Calcium 9.0 mg/dL (8.5-10.5); Carbon Dioxide 27 mmol/L (22-29); Chloride 103 mmol/L (98-107); Creatinine Clr Calc Pharmacy 172.0570; Globulin 2.8 g/dL (1.3-4.6); Glucose 111 mg/dL (65-115); Osmolality Calculated 295 mOsm/kg (285-295); Potassium 4.6 mmol/L (3.5-5.1); Sodium 141 mmol/L (136-145); Total Protein 6.5 g/dL (6.6-8.7)
== END 2024-11-05 21:15 | disposition home or self-care (01) ==
PROVIDERS: Emergency Provider Physician Assistant
DX: I82.811 Embolism and thrombosis of superficial veins of right lower extremity (principal)
CPT/HCPCS: 36415; 80053; 85025; 85651; 86140; 93971; 99284